=== PATIENT | female | born 1970 | race Caucasian/White ===

== ENCOUNTER 2025-01-05 06:00 | Emergency (ER) | payer BC, OTHER ==
[2025-01-05 06:17] VITALS: BP 161/92; PULSE 66
[2025-01-05] MEDS: Famotidine 20 MG Tab PO ONE (06:45)
[2025-01-05] MEDS: Pantoprazole 40 MG Tab.CR PO STA (06:45)
== END 2025-01-05 06:53 | disposition home or self-care (01) ==
LOC: JD.ED 06:00
DX: R10.13 Epigastric pain (principal); I10 Essential (primary) hypertension; E66.9 Obesity, unspecified; Z88.2 Allergy status to sulfonamides; Z88.0 Allergy status to penicillin; Z88.8 Allergy status to other drugs, medicaments and biological substances; Z79.899 Other long term (current) drug therapy; Z86.16 Personal history of COVID-19; Z90.49 Acquired absence of other specified parts of digestive tract; Z90.710 Acquired absence of both cervix and uterus
CPT/HCPCS: 99283; 99284; A9270-GY